=== PATIENT | female | born 1960 | race African-American/Black ===

== ENCOUNTER → 2017-03-16 | Outpatient (CLI) | payer BC ==
[~2017-03-16] MED LIST: GLUCOTROL PO; JANUVIA PO; LISINOPRIL-HCTZ1 T20 PO; PRAVASTATIN SOD40 MG PO
--- NOTE | ~2017-03-16 | MY29 ---
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 [place], [place] [address] [id number] O MR#: [id number] Acc #: [id number] NAME: ALDEN SCHMITZ : 1960 SEX: F STUDY DATE/TIME: 03/16/2017 15:53 UNIT: [facility] ROOM: STUDY DESCRIPTION: MY UMANG SCREENING W/ CAD BILAT Attending Physician: Rhina Edge A.P.R.N. Referring Physician: Rhina Edge A.P.R.N. Ordering Physician: Rhina Edge A.P.R.N. Primary Care Physician: Rhina Edge A.P.R.N. MEDICAL IMAGING REPORT This report is preliminary unless electronic signature is present REVISED REPORT EXAM Bilateral digital screening mammogram with CAD device, 03/16/2017. HISTORY Baseline mammogram. Reduction mammoplasty 02/10/2005. TECHNIQUE Digital imaging of each breast was completed utilizing a two-view examination of each breast in craniocaudal and mediolateral-oblique projections. Review and interpretation of digital mammograms include a second review in conjunction with FDA-approved CAD device. There is a normal parenchymal presentation bilaterally consistent with the patient's age. There are no breast masses imaged and no parenchymal asymmetry is visualized. There are no suspicious microcalcifications and I see no focal architectural disturbance. IMPRESSION Negative screening digital mammogram. One-year followup recommended. Patients over the age of 40 are entered into a reminder system with target due date for the next mammogram. A result letter will also be sent to the patient. BIRADS: 1 Negative Dictated by... Juan C Weinberg M.D. [facility] A Service [facility] RADIOLOGY TEXT RESULTS PATIENT: ALDEN SCHMITZ LOCATION: [facility] : 62 UNIT #: [id number] AGE: [address]: Rhina Edge SEX: F ORDER DR: THIS IS AN ELECTRONICALLY VERIFIED REPORT Juan C Weinberg M.D. at 03/17/2017 4:53 PM CHELLE/rere TD: 03/17/2017 10:49 JOB #: [id number] MEDICAL IMAGING REPORT Page 1 of 1 COPY
== END | disposition home or self-care (01) ==
LOC: CWCC 15:23
DX: Z12.31 Encounter for screening mammogram for malignant neoplasm of breast (principal)
CPT/HCPCS: G0202